=== PATIENT | female | born 1960 | race Caucasian/White ===

== ENCOUNTER 2024-01-26 06:51 | Day surgery (SDC) | payer BC ==
[~2024-01-26 06:51] MED LIST: Midazolam 1 MG/ML 2 ML SDV ONE; fentaNYL 100 MCG/2 ML SDV ONE
[2024-01-26] MEDS: Dextrose 5%-0.45% NaCl 1,000 ML IV SCH (07:10)
[2024-01-26] MEDS: fentaNYL 100 MCG/2 ML SDV IV ONE ×6 (07:17→07:39)
[2024-01-26] MEDS: Midazolam 1 MG/ML 2 ML SDV IV ONE ×6 (07:18→07:26)
== END 2024-01-26 09:00 | disposition home or self-care (01) ==
LOC: DL.ENDO 06:51
PROVIDERS: ATTEND Internal Medicine Gastroenterology
DX: K52.9 Noninfective gastroenteritis and colitis, unspecified (principal); Z98.890 Other specified postprocedural states
CPT/HCPCS: J2250; J3010; J7042